=== PATIENT | female | born 1990 | race Two or more races ===

== ENCOUNTER 2022-10-30 14:58 | Outpatient (CLI) | payer OTHER | END 2022-10-30 16:00 | disposition home or self-care (01) | LOC: PRENATAL 14:58 | PROVIDERS: ATTEND Obstetrics & Gynecology Maternal & Fetal Medicine | DX: O36.80X0 Pregnancy with inconclusive fetal viability, not applicable or unspecified (principal); O36.1999 Maternal care for other isoimmunization, unspecified trimester, other fetus; Z3A.14 14 weeks gestation of pregnancy ==

== ENCOUNTER 2022-12-08 13:15 | Outpatient (CLI) | payer OTHER | END 2022-12-08 14:25 | disposition home or self-care (01) | LOC: PRENATAL 13:15 | PROVIDERS: ATTEND Obstetrics & Gynecology Maternal & Fetal Medicine | DX: O35.9XX0 Maternal care for (suspected) fetal abnormality and damage, unspecified, not applicable or unspecified (principal); O34.219 Maternal care for unspecified type scar from previous cesarean delivery; O35.3XX0 Maternal care for (suspected) damage to fetus from viral disease in mother, not applicable or unspecified; O36.1999 Maternal care for other isoimmunization, unspecified trimester, other fetus; Z3A.20 20 weeks gestation of pregnancy ==

== ENCOUNTER 2023-01-05 10:07 | Outpatient (CLI) | payer OTHER | END 2023-01-05 12:30 | disposition home or self-care (01) | LOC: PRENATAL 10:07 | PROVIDERS: ATTEND Obstetrics & Gynecology Maternal & Fetal Medicine | DX: O26.849 Uterine size-date discrepancy, unspecified trimester (principal); O36.1999 Maternal care for other isoimmunization, unspecified trimester, other fetus; O34.219 Maternal care for unspecified type scar from previous cesarean delivery; Z3A.24 24 weeks gestation of pregnancy ==

== ENCOUNTER 2023-02-06 13:50 | Outpatient (CLI) | payer OTHER | END 2023-02-06 15:46 | disposition home or self-care (01) | LOC: PRENATAL 13:50 | PROVIDERS: ATTEND Obstetrics & Gynecology Maternal & Fetal Medicine | DX: O26.849 Uterine size-date discrepancy, unspecified trimester (principal); O36.1999 Maternal care for other isoimmunization, unspecified trimester, other fetus; O34.219 Maternal care for unspecified type scar from previous cesarean delivery; Z3A.23 23 weeks gestation of pregnancy ==

== ENCOUNTER 2023-03-02 09:53 | Outpatient (CLI) | payer OTHER | END 2023-03-02 12:25 | disposition home or self-care (01) | LOC: PRENATAL 09:53 | PROVIDERS: ATTEND Obstetrics & Gynecology Maternal & Fetal Medicine | DX: O26.849 Uterine size-date discrepancy, unspecified trimester (principal); O36.1999 Maternal care for other isoimmunization, unspecified trimester, other fetus; O34.219 Maternal care for unspecified type scar from previous cesarean delivery; O36.8199 Decreased fetal movements, unspecified trimester, other fetus; Z3A.32 32 weeks gestation of pregnancy ==

== ENCOUNTER 2023-03-22 10:15 | Outpatient (CLI) | payer OTHER | END 2023-03-22 13:15 | disposition home or self-care (01) | LOC: PRENATAL 10:15 | PROVIDERS: ATTEND Obstetrics & Gynecology Maternal & Fetal Medicine | DX: O26.849 Uterine size-date discrepancy, unspecified trimester (principal); O36.1999 Maternal care for other isoimmunization, unspecified trimester, other fetus; O34.219 Maternal care for unspecified type scar from previous cesarean delivery; O36.5990 Maternal care for other known or suspected poor fetal growth, unspecified trimester, not applicable or unspecified; Z3A.35 35 weeks gestation of pregnancy ==

== ENCOUNTER 2023-03-31 06:22 | Inpatient (IN) | payer OTHER ==
[~2023-03-31] VITALS: Ht 167.6 cm; Wt 65.8 kg
[2023-03-31] MEDS ORDERED: PRENATABS RX T1 EACH PO (06:54)
[2023-04-03] MEDS ORDERED: COLACE100 MG PO (13:12)
[2023-04-03] MEDS ORDERED: IBU800 MG PO (13:12)
== END 2023-04-03 13:25 | disposition home or self-care (01) | DRG 783 ==
LOC: LDR 06:22 → O/R 06:22 → OB/GYN 13:27
PROVIDERS: ADMIT Obstetrics & Gynecology; ATTEND Obstetrics & Gynecology
PROC: 0UB70ZZ Excision of Bilateral Fallopian Tubes, Open Approach (ICD-10-PCS; 2023-03-31)
PROC: 4A1HXCZ Monitoring of Products of Conception, Cardiac Rate, External Approach (ICD-10-PCS; 2023-03-31)
PROC: 10D00Z1 Extraction of Products of Conception, Low, Open Approach (ICD-10-PCS; principal; 2023-03-31 11:00)
DX: O34.211 Maternal care for low transverse scar from previous cesarean delivery (principal); O60.14X0 Preterm labor third trimester with preterm delivery third trimester, not applicable or unspecified; Z3A.36 36 weeks gestation of pregnancy; Z37.0 Single live birth; Z20.822 Contact with and (suspected) exposure to COVID-19; Z30.2 Encounter for sterilization

== ENCOUNTER → 2025-03-30 | Emergency (ER) | payer OTHER ==
[~2025-03-30] VITALS: Ht 167.6 cm; Wt 61.2 kg
[~2025-03-30] MED LIST: COLACE100 MG PO; IBU800 MG PO; PRENATABS RX T1 EACH PO; SUCRALFATE 1 G TABLET PO ONE
[2025-03-30 11:10] LABS: BASO % 0.6 % (0.1-1.2); EOS # 0.11 (0.04-0.54); HEMATOCRIT 40.1 % (34.1-44.9); HEMOGLOBIN 13.4 g/dL (11.2-15.7); LYMPH # 1.45 (1.18-3.74); LYMPH % 40.1 % (19.3-53.1); MEAN CORPUSCULAR HEMOGLOBIN 27.9 pg (25.6-32.2); MONO # 0.24 (0.24-0.82); MONO % 6.6 % (4.7-12.5); NEUT # 1.79 (1.56-6.13); NEUT % 49.4 % (34.0-71.1); PLATELET COUNT 195 K/uL (163-369)
[2025-03-30 11:56] LABS: CALCIUM 8.7 mg/dL (8.5-10.1); CREATININE SERUM 0.69 mg/dL (0.55-1.02); GFR 96.82; POTASSIUM 4.09 mEq/L (3.5-5.1)
== END | disposition home or self-care (01) ==
LOC: ER 09:12
PROVIDERS: Emergency Medicine
DX: R10.9 Unspecified abdominal pain (principal)

== ENCOUNTER 2025-09-16 09:27 | Emergency (ER) | payer OTHER ==
[~2025-09-16] VITALS: Ht 167.6 cm; Wt 58.1 kg
[~2025-09-16 09:27] MED LIST changes: -SUCRALFATE 1 G TABLET PO ONE
[2025-09-16 10:25] VITALS: BP 107/73; O2SAT 100
[2025-09-16] MEDS ORDERED: FAMOTIDINE/PF 20 MG/2 ML VIAL IV ONE (12:00)
[2025-09-16] MEDS ORDERED: ONDANSETRON HCL 2 MG/ML VIAL IV ONE (12:00)
[2025-09-16] MEDS ORDERED: 0.9 % SODIUM CHLORIDE 1,000 ML IV SCH (12:00)
[2025-09-16] MEDS ORDERED: ONDANSETRON HCL 2 MG/ML VIAL ONE (12:15)
[2025-09-16] MEDS ORDERED: FAMOTIDINE/PF 20 MG/2 ML VIAL ONE (12:15)
[2025-09-16 12:21] LABS: BASO % 0.7 % (0.1-1.2); EOS # 0.16 (0.04-0.54); EOS % 5.6 % (0.7-7.0); LYMPH # 1.18 (1.18-3.74); LYMPH % 41.1 % (19.3-53.1); MEAN PLATELET VOLUME 10.10 fl (9.4-12.4); MONO # 0.43 (0.24-0.82); NEUT # 1.07 (1.56-6.13); NEUT % 37.3 % (34.0-71.1); RED CELL DISTRIBUTION WIDTH 13.1 % (11.6-14.4)
[2025-09-16 12:23] LABS: MONO % 15.0 % (4.7-12.5)
[2025-09-16 12:53] LABS: ALT/SGPT 27.0 U/L (12-78); AST/SGOT 13.0 U/L (15-37); BILIRUBIN TOTAL 0.47 mg/dL (0.3-1.2); BUN CREA RATIO 9.0 (7.0-25.0); CREATININE SERUM 0.74 mg/dL (0.55-1.02); GFR 89.31; GLOBULINA 3.0 G/DL (2.4-3.5); GLUCOSE FASTING 80.0 mg/dL (65-100); OSMOLALITY SERUM 280.0 MOSM/KG (275-295)
[2025-09-16 13:26] LABS: URINE APPEARANCE Cloudy; URINE BILIRRUBIN Negative (NEGATIVE); URINE BLOOD Negative; URINE COLOR Yellow; URINE GLUCOSE Negative (NEGATIVE); URINE KETONE Negative (NEGATIVE); URINE LEUKOCYTE Negative; URINE NITRATE Negative; URINE PROTEIN Negative (NEGATIVE); URINE UROBILINOGEN 0.2 E.U./dl
[2025-09-16 13:30] LABS: URINE BACTERIA 1225.1 uL (0.0-1933); URINE EPITHELIAL CELLS 65.9 uL (0.0-38.8); URINE RBC 5.7 uL (0.0-20.8); URINE WBC 4.6 uL (0.0-23.2)
[2025-09-16 13:37] LABS: URINE CAST 0.00 uL (0.0-1.40)
[2025-09-16] MEDS ORDERED: PEPCID AC20 MG PO (15:12)
== END 2025-09-16 15:45 | disposition home or self-care (01) ==
LOC: ER 09:27
PROVIDERS: Student in an Organized Health Care Education/Training Program
DX: K29.70 Gastritis, unspecified, without bleeding (principal); K59.00 Constipation, unspecified; K52.89 Other specified noninfective gastroenteritis and colitis